=== PATIENT | female | born 1985 | race Caucasian/White ===

== ENCOUNTER 2018-06-12 19:36 | Emergency (ER) | payer OTHER ==
[~2018-06-12] VITALS: Ht 162.6 cm; Wt 88.5 kg
[2018-06-12 20:29] VITALS: BP 158/78
[2018-06-12] MEDS ORDERED: NORCO 5MG PO ONE ×2 (20:45→21:00)
--- NOTE | 2018-06-12 20:55 | NUR ---
XRAY ARE COPLETED MEDICATION GIVEN FOR PAIN , ELEVATED LEFT HAND ABOVE HEART .PATIENT ASSISTED TO BATHROOM HAS VOIDED
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
[2018-06-12 21:37] VITALS: BP 142/59
--- NOTE | 2018-06-12 21:39 | NUR ---
splint applied gutter ulna to left hand involving ring finger to little finger , dismissal instructions given to patient with medication teaching tylenol with alex and hand care follow up with Dr. Gaston , Left unit ambulatory
== END 2018-06-12 21:33 | disposition home or self-care (01) ==
LOC: ER 19:36 → EDBD 19:36 → ER 21:33
DX: S62.357A Nondisplaced fracture of shaft of fifth metacarpal bone, left hand, initial encounter for closed fracture (principal); S62.617A Displaced fracture of proximal phalanx of left little finger, initial encounter for closed fracture; F17.210 Nicotine dependence, cigarettes, uncomplicated; Z91.048 Other nonmedicinal substance allergy status; V87.7XXA Person injured in collision between other specified motor vehicles (traffic), initial encounter; Y93.89 Activity, other specified; Y92.89 Other specified places as the place of occurrence of the external cause; Y99.8 Other external cause status
CPT/HCPCS: 29125; 99285; 73130-LT